=== PATIENT | female | born 1960 | race Caucasian/White ===

== ENCOUNTER 2018-07-03 08:42 | Day surgery (SDC) | payer OTHER ==
[~2018-07-03] VITALS: Ht 160 cm; Wt 43.4 kg
[~2018-07-03 08:42] MED LIST: AZIT250 PO; B Complex #11 EACH PO; ETHAMBUTOL HCL PO; METTREX2.5 PO; RIFA300 PO
== END 2018-07-03 10:24 | disposition home or self-care (01) ==
LOC: ORSCSDS 08:42
PROVIDERS: Internal Medicine Gastroenterology
PROC: 0D5P8ZZ Destruction of Rectum, Via Natural or Artificial Opening Endoscopic (ICD-10-PCS; principal; 2018-07-03 10:00)
DX: K62.5 Hemorrhage of anus and rectum (principal); K64.8 Other hemorrhoids; K62.7 Radiation proctitis; Z85.41 Personal history of malignant neoplasm of cervix uteri; M06.9 Rheumatoid arthritis, unspecified; Z79.899 Other long term (current) drug therapy
CPT/HCPCS: J2704; J7120